=== PATIENT | female | born 1980 ===

== ENCOUNTER 2024-02-25 03:51 | Day surgery (SDC) | payer OTHER ==
[2024-02-21 16:41] VITALS: BMI 28.9
[2024-02-25] MEDS ORDERED: ceFAZolin SODIUM 1 GM VIAL ONE (09:41)
[2024-02-25] MEDS ORDERED: CLINDAMYCIN PHOSPHATE 600 MG/4 ML VIAL ONE (09:41)
[2024-02-25 09:45] LABS: BASO % 0.9 % (0-2.0); EOS % 1.8 % (0-4.5); HEMATOCRIT 35.5 % (32.4-45.2); HEMOGLOBIN 11.2 GM/dL (10.7-15.3); LYMPH % 19.5 % (8-40); MCH 23.1 pg (25.7-33.7); MCHC 31.5 g/dl (32.0-36.0); MEAN CELL VOLUME 73.3 fl (80-96); MEAN PLT VOLUME 9.8 fl (7.5-11.1); MONO % 10.1 % (3.8-10.2); NEUT % 67.7 % (42.8-82.8); PLATELET COUNT 262 10^3/uL (134-434); RBC 4.84 M/mm3 (3.60-5.2); RDW 16.3 % (11.6-15.6); WHITE BLOOD COUNT 11.1 K/mm3 (4.0-10.0)
[2024-02-25] MEDS ORDERED: CLINDAMYCIN PHOSPHATE 300 MG/2 ML VIAL ONE (10:01)
[2024-02-25] MEDS ORDERED: ONDANSETRON 4 MG/2 ML VIAL IVPUSH PRN (11:16)
[2024-02-25] MEDS ORDERED: LACTATED RINGERS SOLUTION 1,000 ML IV SCH (11:30)
[2024-02-25] MEDS: INDOMETHACIN 50 MG CAPSULE PO ONE (11:39)
[2024-02-25 13:23] VITALS: RESP 18
[2024-02-25 18:04] VITALS: BP 144/97; PULSE 74; TEMP 98.2
== END 2024-02-25 18:50 | disposition home or self-care (01) ==
LOC: JASU-SURG 03:51
PROVIDERS: ATTEND Obstetrics & Gynecology Maternal & Fetal Medicine
PROC: 0UVC7ZZ Restriction of Cervix, Via Natural or Artificial Opening (ICD-10-PCS; principal; 2024-02-25 10:00)
DX: O34.31 Maternal care for cervical incompetence, first trimester (principal); O30.101 Triplet pregnancy, unspecified number of placenta and unspecified number of amniotic sacs, first trimester; Z3A.11 11 weeks gestation of pregnancy
CPT/HCPCS: 36415; 85025; 86850; 86900; 86901; 94760